=== PATIENT | male | born 1940 | race Asian ===

== ENCOUNTER 2018-10-25 23:32 | Outpatient (CLI) | payer OTHER | END 2018-10-25 23:33 | disposition critical access hospital (66) | LOC: EMS 23:32 | PROVIDERS: ATTEND Surgery | DX: R41.82 Altered mental status, unspecified (principal) | CPT/HCPCS: A0425; A0427 ==

== ENCOUNTER 2018-10-25 23:58 | Observation (INO) | payer MEDICARE, OTHER ==
[2018-10-26 02:27] LABS: BASOPHILS # (AUTO) 0.1 10^3/uL (0.0-0.1); BASOPHILS % (AUTO) 0.7 %; EOSINOPHILS # (AUTO) 0.1 10^3/uL (0.0-0.7); EOSINOPHILS % (AUTO) 1.2 %; HGB - HEMOGLOBIN 13.6 g/dL (14.0-18.0); LYMPHOCYTES # (AUTO) 0.4 10^3/uL (1.5-3.5); LYMPHOCYTES % (AUTO) 5.2 %; MEAN CORPUSCULAR HEMOGLOBIN 31.3 pg (27.0-31.0); MEAN CORPUSCULAR HGB CONC 33.5 g/dL (32.0-36.0); MEAN CORPUSCULAR VOLUME 93.7 fL (80.0-94.0); MEAN PLATELET VOLUME 9.3 fL (7.4-11.4); MONOCYTES # (AUTO) 0.5 10^3/uL (0.0-1.0); MONOCYTES % (AUTO) 5.7 %; NEUTROPHILS # (AUTO) 7.3 10^3/uL (1.5-6.6); NEUTROPHILS % (AUTO) 87.2 %; PLT - PLATELET COUNT 105 10^3/uL (130-450); RED BLOOD COUNT 4.32 10^6/uL (4.70-6.10); RED CELL DISTRIBUTION WIDTH 13.5 % (12.0-15.0); WHITE BLOOD COUNT 8.4 x10^3/uL (4.8-10.8)
[2018-10-26 02:30] LABS: ALBUMIN 3.5 g/dL (3.2-5.5); BILIRUBIN,TOTAL 0.7 mg/dL (0.2-1.0); CALCIUM 8.2 mg/dL (8.5-10.3); CREATININE 1.4 mg/dL (0.6-1.2); TOTAL PROTEIN 6.1 g/dL (6.7-8.2)
[2018-10-26 02:31] LABS: ALBUMIN/GLOBULIN RATIO 1.3 (1.0-2.2)
[2018-10-26] MEDS ORDERED: SODIUM CHLORIDE 0.9% 1,000 ML IV ONE (03:02)
[2018-10-26] MEDS ORDERED: ONDANSETRON 4 MG/2 ML VIAL IVP PRN (03:10)
[2018-10-26] MEDS ORDERED: SODIUM CHLORIDE FLUSH 0.9% 10 ML SYRINGE IVP PRN (03:10)
[2018-10-26] MEDS ORDERED: ACETAMINOPHEN 325 MG TABLET PO PRN (03:10)
[2018-10-26] MEDS ORDERED: ONDANSETRON ODT 4 MG TABLET TL PRN (03:10)
--- NOTE | 2018-10-26 03:10 | ED Physician Documentation ---
PD HPI SYNCOPE - Stated complaint Stated Complaint: HYPOTENSION - Chief complaint Chief Complaint: Cardiac - History obtained from History obtained from: Patient, Family - History of Present Illness Witnessed: Witnessed Timing - onset: How many hours ago (3) Duration: Minutes (20) Preceding symptoms: None Associated symptoms: Other (Confusion) Contributing factors: None Injury occurred: None Pain level max: 0 Pain level now: 0 Severity Comments: Moderate Treatment [employer]: Fluids - Additional information Additional information: 78-year-old male found by to be unresponsive on the couch at home. When he started talking he appeared confused. Patient was still confused when EMS arrived and was found to be hypotensive with systolic blood pressure in the 60s. Patient was laid down and feet were raised and patient gradually regained consciousness. Given 500 cc normal saline and brought to the emergency department. Review of Systems Constitutional: reports: Reviewed and negative Eyes: reports: Reviewed and negative Ears: reports: Reviewed and negative Nose: reports: Reviewed and negative Throat: reports: Reviewed and negative Cardiac: reports: Reviewed and negative Respiratory: reports: Reviewed and negative GI: reports: Reviewed and negative : reports: Reviewed and negative Skin: reports: Reviewed and negative Musculoskeletal: reports: Reviewed and negative Neurologic: reports: Syncope, Confused, Unresponsive Psychiatric: reports: Reviewed and negative Endocrine: reports: Reviewed and negative Immunocompromised: reports: Reviewed and negative PD PAST MEDICAL HISTORY - Past Medical History Cardiovascular: Hypertension, High cholesterol GI: GERD - Past Surgical History Past Surgical History: No - Present Medications Home Medications: Ambulatory Orders Medication Instructions Recorded Confirmed Albuterol Oral Soln 2 mg PO Q6H 05/08/13 05/13/13 Aspirin [Aspir 81] 81 mg PO 05/08/13 05/13/13 Atenolol [Tenormin] 25 mg PO 05/08/13 05/13/13 Gabapentin [Neurontin] 200 mg PO TID 05/08/13 05/13/13 Methocarbamol [Robaxin] 500 mg PO ONCE 05/08/13 05/13/13 Naproxen [Naprosyn] 125 mg PO 05/08/13 05/13/13 Omeprazole [PriLOSEC] 10 mg PO 05/08/13 05/13/13 Prazosin [Minipress] 1 mg PO DAILY 05/08/13 05/13/13 Rosuvastatin [Crestor] 10 mg PO 05/08/13 05/13/13 HYDROcod/ACETAM 325 [Vicodin 1 - 2 ea PO Q6H PRN #30 tablet 05/13/13 5/325] - Allergies Allergies/Adverse Reactions: Allergies Allergy/AdvReac Type Severity Reaction Status Date / Time No Known Drug Allergies Allergy Verified 05/08/13 14:25 - Social History Does the pt smoke?: No Smoking Status: Never smoker Does the pt drink ETOH?: No Does the pt have substance abuse?: No PD ED PE NORMAL - Vitals Vital signs reviewed: Yes - General General: Alert and oriented X 3, No acute distress - HEENT HEENT: PERRL - Neck Neck: Supple, no meningeal sign - Cardiac Cardiac: RRR, No murmur - Respiratory Respiratory: Clear bilaterally - Abdomen Abdomen: Normal bowel sounds, Soft, Non tender, Non distended - Derm Derm: Warm and dry - Extremities Extremities: No deformity - Neuro Neuro: Alert and oriented X 3 - Psych Psych: Normal mood, Normal affect Results - Vitals Vitals: Vital Signs - 24 hr 10/26/18 02:44 Heart Rate 68 Respiratory 16 Rate Blood Pressure 136/64 H O2 Saturation 100 Oxygen O2 Source Room air - Labs Labs: Laboratory Tests 10/26/18 10/26/18 10/26/18 01:25 01:25 01:25 WBC 8.4 RBC 4.32 L Hgb 13.6 L Hct 40.5 L MCV 93.7 MCH 31.3 H MCHC 33.5 RDW 13.5 Plt Count 105 L MPV 9.3 Neut # (Auto) 7.3 H Lymph # (Auto) 0.4 L [place] # (Auto) 0.5 Eos # (Auto) 0.1 Baso # (Auto) 0.1 Absolute Nucleated RBC 0.00 Nucleated RBC % 0.0 D-Dimer Sodium 140 Potassium 4.0 Chloride 106 Carbon Dioxide 26 Anion Gap 8.0 BUN 19 Creatinine 1.4 H Estimated GFR (MDRD) 49 L Glucose 131 H Lactic Acid Calcium 8.2 L Total Bilirubin 0.7 AST 21 ALT 18 Alkaline Phosphatase 51 Troponin I < 0.04 Total Protein 6.1 L Albumin 3.5 Globulin 2.6 Albumin/Globulin Ratio 1.3 Lipase 56 H 10/26/18 10/26/18 01:25 01:25 WBC RBC Hgb Hct MCV MCH MCHC RDW Plt Count MPV Neut # (Auto) Lymph # (Auto) [place] # (Auto) Eos # (Auto) Baso # (Auto) Absolute Nucleated RBC Nucleated RBC % D-Dimer 278.8 H Sodium Potassium Chloride Carbon Dioxide Anion Gap BUN Creatinine Estimated GFR (MDRD) Glucose Lactic Acid 2.0 Calcium Total Bilirubin AST ALT Alkaline Phosphatase Troponin I Total Protein Albumin Globulin Albumin/Globulin Ratio Lipase - Rads (name of study) CT HEAD Radiology: Final report received (WNL) Chest Xray Radiology: Final report received (WNL) PD MEDICAL DECISION MAKING - ED course Complexity details: reviewed results, re-evaluated patient, considered differential, d/w patient, d/w family ED course: 78-year-old male with episode of unresponsiveness and confusion while at home.Vitals, labs, EKG, chest x-ray, head CT unremarkable.D-dimer is mildly elevated but within normal limits using age-adjusted d-dimer limits. Lipase is mildly elevated. Creatinine mildly elevated. Concern for possible TIA versus syncopal episode. Given patient's hypotension he will be admitted for hospital observation and further evaluation. Departure - Departure Disposition: ED Place in Observation Clinical Impression: Syncope Qualifiers: Syncope type: unspecified Qualified Code(s): R55 - Syncope and collapse Condition: Serious
[2018-10-26] MEDS ORDERED: MIDODRINE 2.5 MG TABLET PO PRN (03:14)
--- NOTE | 2018-10-26 03:26 | HISTORY & PHYSICAL EXAMINATION ---
Chief Complaint - Chief Complaint Chief Complaint: Syncope and unresponsive at home on couch found by Stroke/TIA/Neuro Template - Admitted From Admitted from: ED - History Obtained From Records Reviewed: RN notes reviewed, Old records reviewed History obtained from: Patient, Family Exam limitations: No limitations - History of Present Illness HPI Comment/Other: 78-year-old male with hx HTN, HLP and GERD, was found by to be unresponsive on the couch at home. When he started talking he appeared confused. Patient was still confused when EMS arrived and was found to be hypotensive with systolic blood pressure in the 60s. Patient was laid down and feet were raised and patient gradually regained consciousness. Given 500 cc normal saline and brought to the emergency department. Head CT as well as initial cardiac workup was neg. Cr 1.4, Plt 105, d-dimer 278. LA 2.0, EKG shows sinus bradycardia at [address]-T wave abnormalities with trop x 1 neg. Patient initial encephaopathic but now is CAOx3 but does not recall what he did or said during episode. denies seizure event, only confusion and that he was "delirious". PMH/PSH - Past Medical History Cardiovascular: positive: Hypertension, High cholesterol GI: positive: GERD MRSA Hx?: No Social & Family Hx - Social History Does the pt smoke?: No Smoking Status: Never smoker Does the pt drink ETOH?: No Does the pt have substance abuse?: No Meds/Allgy - Home Medications Home Medications: Ambulatory Orders Medication Instructions Recorded Confirmed Albuterol Oral Soln 2 mg PO Q6H 05/08/13 05/13/13 Aspirin [Aspir 81] 81 mg PO 05/08/13 05/13/13 Atenolol [Tenormin] 25 mg PO 05/08/13 05/13/13 Gabapentin [Neurontin] 200 mg PO TID 05/08/13 05/13/13 Methocarbamol [Robaxin] 500 mg PO ONCE 05/08/13 05/13/13 Naproxen [Naprosyn] 125 mg PO 05/08/13 05/13/13 Omeprazole [PriLOSEC] 10 mg PO 05/08/13 05/13/13 Prazosin [Minipress] 1 mg PO DAILY 05/08/13 05/13/13 Rosuvastatin [Crestor] 10 mg PO 05/08/13 05/13/13 HYDROcod/ACETAM 5/325 [Vicodin 1 - 2 ea PO Q6H PRN #30 tablet 05/13/13 5/325] - Allergies Allergies/Adverse Reactions: Allergies Allergy/AdvReac Type Severity Reaction Status Date / Time No Known Drug Allergies Allergy Verified 05/08/13 14:25 Review of Systems - Constitutional Constitutional: reports: Weakness - Eyes Eyes: denies: Amaurosis, Field loss - Ears, Nose & Throat Ears, Nose & Throat: denies: Tinnitus, Vertigo - Cardiovascular Cariovascular: reports: Lightheadedness. denies: Chest pain, Edema - Respiratory Respiratory: denies: Wheezing - Gastrointestinal Gastrointestinal: reports: Reflux/heartburn. denies: Black stools, Bloody stools, Nausea, Vomiting, Coffee grounds emesis - Genitourinary Genitourinary: denies: Dysuria, Frequency, Hematuria - Musculoskeletal Musculoskeletal: denies: Muscle pain, Back pain, Muscle weakness - Integumentary Integumentary: denies: Rash, Pruritis, Lesions - Neurological Neurological: reports: General weakness. denies: Focal weakness, Dizziness, Numbness, Memory problems, Abnormal gait, Seizures, Slurred speech - Psychiatric Psychiatric: denies: Depression, Anxiety, Suicidal - Endocrine Endocrine: denies: Polyuria, Polydypsia, Polyphagia - Hematologic/Lymphatic Hematologic/Lymphatic: denies: Anemia, Recurrent infections - All Other Systems All Other Systems: reports: Reviewed and negative Prior Level of Functionality: Patient is active and independent at home with home ADL's Exam - Vital Signs Reviewed Vital Signs: Yes Vital Signs: Vital Signs x48h Pulse Resp BP Pulse Ox 10/26/18 02:44 68 16 136/64 H 100 - Physical Exam General Appearance: positive: No acute distress, Alert Eyes Bilateral: positive: Normal inspection, PERRL, EOMI, Conjunctivae nml ENT: positive: ENT inspection nml, Pharynx nml, No signs of dehydration Neck: positive: Nml inspection, Thyroid nml, No JVD, Trachea midline. negative: Thyromegaly Respiratory: positive: Chest non-tender, No respiratory distress, Breath sounds nml. negative: Wheezes, Rales, Rhonchi Cardiovascular: positive: Regular rate & rhythm, No murmur, No gallop. negative: JVD present, Systolic murmur, Diastolic murmur, Gallop/S3, Gallop/S4 Peripheral Pulses: positive: 2+ Abdomen: positive: Non-tender, No organomegaly, Nml bowel sounds, No distention. negative: Tenderness Skin: positive: Color nml, No rash, Warm, Dry. negative: Cyanosis, Diaphoresis, Skin rash Extremities: positive: Non-tender, Full ROM, Nml appearance, No pedal edema. negative: Joint swelling, Mariana's sign/cords Neurologic/Psychiatric: positive: Oriented x3, CN's nml (2-12), Mood/affect nml. negative: Facial droop, Slurred/abnml speech Reflexes: Bicep (R): 2+, Bicep (L): 2+, Knee (R): 2+, Knee (L): 2+, Ankle (R): 2+, Ankle (L): 2+ Babinski Reflex: Right: Absent, Left: Absent Results - Lab Results Lab results reviewed: Yes Fish Bones: 10/26/18 01:25 10/26/18 01:25 Other Lab Results: Lab Results x24hrs 10/26/18 10/26/18 10/26/18 Range/Units 01:25 01:25 01:25 WBC (4.8-10.8) x10^3/uL RBC (4.70-6.10) 10^6/uL Hgb (14.0-18.0) g/dL Hct (42.0-52.0) % MCV (80.0-94.0) fL MCH (27.0-31.0) pg MCHC (32.0-36.0) g/dL RDW (12.0-15.0) % Plt Count (130-450) 10^3/uL MPV (7.4-11.4) fL Neut # (Auto) (1.5-6.6) 10^3/uL Lymph # (Auto) (1.5-3.5) 10^3/uL [place] # (Auto) (0.0-1.0) 10^3/uL Eos # (Auto) (0.0-0.7) 10^3/uL Baso # (Auto) (0.0-0.1) 10^3/uL Absolute Nucleated RBC x10^3/uL Nucleated RBC % /100WBC D-Dimer 278.8 H (200.0-255.0) ng/mL Sodium (135-145) mmol/L Potassium (3.5-5.0) mmol/L Chloride (101-111) mmol/L Carbon Dioxide (21-32) mmol/L Anion Gap (6-13) BUN (6-20) mg/dL Creatinine (0.6-1.2) mg/dL Estimated GFR (MDRD) (>89) Glucose (70-100) mg/dL Lactic Acid 2.0 (0.5-2.2) mmol/L Calcium (8.5-10.3) mg/dL Total Bilirubin (0.2-1.0) mg/dL AST (10-42) IU/L ALT (10-60) IU/L Alkaline Phosphatase (42-121) IU/L Troponin I < 0.04 (<0.49) ng/mL Total Protein (6.7-8.2) g/dL Albumin (3.2-5.5) g/dL Globulin (2.1-4.2) g/dL Albumin/Globulin Ratio (1.0-2.2) Lipase (22-51) U/L 10/26/18 10/26/18 Range/Units 01:25 01:25 WBC 8.4 (4.8-10.8) x10^3/uL RBC 4.32 L (4.70-6.10) 10^6/uL Hgb 13.6 L (14.0-18.0) g/dL Hct 40.5 L (42.0-52.0) % MCV 93.7 (80.0-94.0) fL MCH 31.3 H (27.0-31.0) pg MCHC 33.5 (32.0-36.0) g/dL RDW 13.5 (12.0-15.0) % Plt Count 105 L (130-450) 10^3/uL MPV 9.3 (7.4-11.4) fL Neut # (Auto) 7.3 H (1.5-6.6) 10^3/uL Lymph # (Auto) 0.4 L (1.5-3.5) 10^3/uL [place] # (Auto) 0.5 (0.0-1.0) 10^3/uL Eos # (Auto) 0.1 (0.0-0.7) 10^3/uL Baso # (Auto) 0.1 (0.0-0.1) 10^3/uL Absolute Nucleated RBC 0.00 x10^3/uL Nucleated RBC % 0.0 /100WBC D-Dimer (200.0-255.0) ng/mL Sodium 140 (135-145) mmol/L Potassium 4.0 (3.5-5.0) mmol/L Chloride 106 (101-111) mmol/L Carbon Dioxide 26 (21-32) mmol/L Anion Gap 8.0 (6-13) BUN 19 (6-20) mg/dL Creatinine 1.4 H (0.6-1.2) mg/dL Estimated GFR (MDRD) 49 L (>89) Glucose 131 H (70-100) mg/dL Lactic Acid (0.5-2.2) mmol/L Calcium 8.2 L (8.5-10.3) mg/dL Total Bilirubin 0.7 (0.2-1.0) mg/dL AST 21 (10-42) IU/L ALT 18 (10-60) IU/L Alkaline Phosphatase 51 (42-121) IU/L Troponin I (<0.49) ng/mL Total Protein 6.1 L (6.7-8.2) g/dL Albumin 3.5 (3.2-5.5) g/dL Globulin 2.6 (2.1-4.2) g/dL Albumin/Globulin Ratio 1.3 (1.0-2.2) Lipase 56 H (22-51) U/L - Diagnostic Imaging Results Diagnostic Imaging Results: positive: Final report reviewed (CT head and EKG reviewed) - EKG Results EKG Interpreted Independently: No Impression/Plan - Problem List Problem List: 1. Acute syncope and collapse 2. Drug induced vs orthostatic syncope 3. Acute renal insufficiency/CKD stage 2 4. Thrombocytopenia 5. Acute encephalopathy sec to #1/2 (resolved) Plan: Obs/tele, neurochecks, echo, tsh to follow, coags, no bleeding noted on ASA to continue for thromboembolic ppx, perhaps low plts sec to aspirin use. Coags in am. Would hold all home meds as I suspect drug induced syncopal event (i.e. lisinopril atenolol, prazosin, robaxin); he no longer takes neurontin. Combined this would precipitate low BP's and or syncopal event, orthostats to follow. Unlikely seizure event. TRINY sec to low BP's and hypoperfusion less likely ATN or JENNIFER-inh induced by lisinopril. IVF's to perfuse kidneys, avoid nephrotoxic agents, lipid panel in am, moderate intensity statin. Am cortisol level due to very sbp on initial presentation. ECHO to eval for EF, MWA and or valvular/structural heart disease in the setting of sinus bradycardia seen on ECG with some ST T wave abnormalities. Midodrine 10 mg TID prn with parameters, if bP excursions then give hydralazine 10 mg prn with parameters. Would defer MRI brain as no neuro deficits seen. Consider US carotids. DVT and GI ppx to continue. Code Status: Full code. Core Measures - Anticipated LOS I expect patient to be DC'd or transferred within 96 hours.: Yes - Issues Hospital Issues and Management Plan: Will admit to obs/tele, PT, ECHO, labs and med mgmt. - DVT/VTE - Prophylaxis VTE/DVT Device ordered at admit?: Yes VTE/DVT Prophylaxis med ordered at admit?: No Not Ordered - Medical Reason: Not indicated - Stroke - Rehab Assessment Rehab services assessment to be ordered?: No Not Ordered - Medical Reason: Not indicated - AMI - Statin at Admit Aspirin Prescribed on Admit: Yes
[2018-10-26] MEDS ORDERED: hydrALAZINE INJ 20 MG/ML VIAL IVP PRN (03:50)
[2018-10-26] MEDS ORDERED: LACTATED RINGERS 1,000 ML IV SCH (04:00)
--- NOTE | 2018-10-26 05:20 | Ultrasound Report ---
Reason: syncope and collapse Procedure Date: 10/26/2018 Accession Number: [id number] / [id number] Procedure: US - Carotid Doppler Complete CPT Code: FULL RESULT: EXAM: BILATERAL CAROTID AND VERTEBRAL ARTERY DUPLEX DOPPLER ULTRASOUND: EXAM DATE: 10/26/2018 04:30 AM CLINICAL HISTORY: Syncope and collapse. COMPARISON: None. TECHNIQUE: Grayscale imaging, color Doppler, and duplex spectral Doppler were used to evaluate the carotid and vertebral arteries bilaterally. Static images were obtained. FINDINGS: A mild amount of smooth carotid plaquing is seen bilaterally. Normal antegrade flow is present in bilateral vertebral arteries. VELOCITIES (cm/sec): Right CCA mid: PSV 127 cm/sec CCA dist: PSV 112 cm/sec ICA prox: PSV 84.5 cm/sec, EDV 22.7 cm/sec ICA mid: PSV 73.9 cm/sec, EDV 21.9 cm/sec ICA dist: PSV 52.7 cm/sec, EDV 15.9 cm/sec ECA: PSV 90.1 cm/sec Vert: PSV 63.5 cm/sec ICA/CCA: 0.7 Left CCA mid: PSV 82.3 cm/sec CCA dist: PSV 86.6 cm/sec ICA prox: PSV 73.6 cm/sec, EDV 14.4 cm/sec ICA mid: PSV 56.1 cm/sec, EDV 16 cm/sec ICA dist: PSV 68.6 cm/sec, EDV 21 cm/sec ECA: PSV 80.1 cm/sec Vert: PSV 44.5 cm/sec ICA/CCA: 0.9 ICA diameter stenosis: Right: <50% by velocity and <70% by NASCET criteria. Left: <50% by velocity and <70% by NASCET criteria. IMPRESSION: 1. Mild bilateral carotid artery plaquing. 2. In the right carotid artery there are no elevated carotid artery velocities to suggest hemodynamically significant stenosis. 3. In the left carotid artery there are no elevated carotid artery velocities to suggest hemodynamically significant stenosis. 4. Normal antegrade flow is present in bilateral vertebral arteries. General Recommendations: Stenosis =50% ICA - Follow-up ultrasound 6-12 months Stenosis <50% ICA - High Risk Patient with plaque - Follow-up ultrasound 1-2 years Normal Study but High Risk Patient - Follow-up ultrasound 3-5 years Management recommendations and diagnostic criteria are based on current IAC endorsed standards in Carotid Artery Stenosis: Grayscale and Doppler Ultrasound Diagnosis. Validated velocity measurements with angiographic measurements and velocity criteria are extrapolated from diameter data as defined by the Society of Radiologists in Ultrasound Consensus Conference Radiology 2003; 229;340-346. RADIA
[2018-10-26 06:01] LABS: INR 1.1 (0.8-1.2); PT - PROTHROMBIN TIME 12.8 secs (9.9-12.6)
[2018-10-26 06:20] LABS: HEMOGLOBIN A1C 0.54 g/dL; HEMOGLOBIN A1C % 5.7 % (4.6-6.2)
[2018-10-26 06:21] LABS: CHOL/HDL RATIO 3.8 (<5.0); CHOLESTEROL 149 mg/dL; HDL CHOLESTEROL 39 mg/dL; LDL CHOLESTEROL,CALCULATED 87 mg/dL; LDL/HDL RATIO 2.2 (<3.6); VLDL CHOLESTEROL 23 mg/dL
[2018-10-26] MEDS ORDERED: SODIUM CHLORIDE FLUSH 0.9% 10 ML SYRINGE IVP SCH (09:00)
[2018-10-26] MEDS ORDERED: POLYETHYLENE GLYCOL 3350 17 GM PACKET PO SCH (09:00)
[2018-10-26] MEDS ORDERED: FAMOTIDINE 20 MG TABLET PO SCH (09:00)
[2018-10-26] MEDS ORDERED: ASPIRIN EC 81 MG TABLET PO SCH (09:00)
[2018-10-26 09:08] LABS: BASOPHILS % (AUTO) 0.2 %; EOSINOPHILS # (AUTO) 0.3 10^3/uL (0.0-0.7); EOSINOPHILS % (AUTO) 3.7 %; HGB - HEMOGLOBIN 13.5 g/dL (14.0-18.0); LYMPHOCYTES # (AUTO) 1.1 10^3/uL (1.5-3.5); MEAN CORPUSCULAR HEMOGLOBIN 31.4 pg (27.0-31.0); MEAN CORPUSCULAR HGB CONC 33.7 g/dL (32.0-36.0); MEAN CORPUSCULAR VOLUME 93.4 fL (80.0-94.0); MEAN PLATELET VOLUME 8.8 fL (7.4-11.4); MONOCYTES # (AUTO) 0.5 10^3/uL (0.0-1.0); MONOCYTES % (AUTO) 7.2 %; NEUTROPHILS # (AUTO) 4.9 10^3/uL (1.5-6.6); NEUTROPHILS % (AUTO) 72.9 %; PLT - PLATELET COUNT 102 10^3/uL (130-450); RED BLOOD COUNT 4.31 10^6/uL (4.70-6.10); RED CELL DISTRIBUTION WIDTH 13.2 % (12.0-15.0); WHITE BLOOD COUNT 6.8 x10^3/uL (4.8-10.8)
[2018-10-26 09:26] LABS: ALBUMIN 3.6 g/dL (3.2-5.5); CALCIUM 8.5 mg/dL (8.5-10.3); CREATININE 1.2 mg/dL (0.6-1.2); PHOSPHORUS 2.5 mg/dL (2.5-4.6)
--- NOTE | 2018-10-26 11:51 | XRAY Report ---
Reason: SYNCOPE Procedure Date: 10/26/2018 Accession Number: [id number] / [id number] Procedure: XR - Chest 1 View X-Ray CPT Code: 66833 FULL RESULT: EXAM: CHEST RADIOGRAPHY EXAM DATE: 10/26/2018 01:20 AM. CLINICAL HISTORY: Syncope COMPARISON: CHEST 2 VIEW PA/LAT 05/13/2013 2:04 AM ABDOMEN/PELVIS W/O 05/13/2013 2:12 AM. TECHNIQUE: One view FINDINGS: Lungs/Pleura: No focal opacities evident. No pleural effusion. No pneumothorax. Normal volumes. Mediastinum: Heart and mediastinal contours are unremarkable. Other: None. IMPRESSION: Negative single view chest. RADIA
--- NOTE | 2018-10-26 11:52 | CT Report ---
Reason: SYNCOPE Procedure Date: 10/26/2018 Accession Number: [id number] / [id number] Procedure: CT - HEAD WO CPT Code: FULL RESULT: EXAM: CT HEAD EXAM DATE: 10/26/2018 01:34 AM. CLINICAL HISTORY: Syncope COMPARISON: None. TECHNIQUE: Multiaxial CT images were obtained from the foramen magnum to the vertex. Reformats: Sagittal and coronal. IV contrast: None. In accordance with CT protocol optimization, one or more of the following dose reduction techniques were utilized for this exam: automated exposure control, adjustment of mA and/or KV based on patient size, or use of iterative reconstructive technique. FINDINGS: Parenchyma: No intraparenchymal hemorrhage. No evidence of mass, midline shift, or CT findings of acute infarction. Mild low density of white matter of the cerebral hemispheres. No evidence of prior large vascular territory infarct. Extraaxial Spaces: No subdural or epidural collections identified. Ventricles: Mild enlargement of lateral and third ventricles. No mass-effect. No midline shift. Sinuses and Orbits: Imaged paranasal sinuses, orbits, and mastoids show no significant abnormality. Bones: No evidence of fracture or calvarial defect. Other: None. IMPRESSION: No CT evidence of acute intracranial process. RADIA
--- NOTE | 2018-10-26 15:11 | Discharge Plan ---
Discharge Plan Disposition: 01 Home, Self Care Condition: Stable Diet: Low Sodium Activity Restrictions: Activity as Tolerated Shower Restrictions: No Driving Restrictions: Yes (No driving til cleared by your PCP) Instruction Topics: Syncope, Bradycardia Additional Instructions or Follow Up instructions: You were here for evaluation and management of fainting. You had a low BP and a low pulse when the paramedics arrived. Testing here showed that you were dehydrated and your Atenolol dose was excessive, Please stop taking the Atenolol pill. Resume your other medications. Stay well hydrated. You must see your PCP to be cleared to resume driving. It will be an illegal offense if you are caught driving without being cleared. Please see your PCP MARIA G, therefore. No Smoking: If you smoke, Please STOP! Call for help. Follow-up with: Sukumar Ayala DO [Provider Admit Priv/Credential] -
[2018-10-26 16:24] VITALS: BP 150/74
[2018-10-26] MEDS ORDERED: ATORVASTATIN 40 MG TABLET PO SCH (21:00)
--- NOTE | 2018-11-03 08:15 | PROVIDER PROGRESS NOTE ---
Assessment/Plan - Problem List (1) Syncope Qualifiers: Syncope type: unspecified Qualified Code(s): R55 - Syncope and collapse Assessment/Plan: Troponin was normal, carotid Doppler was normal. BP improved to 136 systolic, after a fluid bolus and iv rehydration and the creatinine of 1.4 corrected, orthostatic VS checks were normal. BP at the scene (from the Pre-hospital Report sheet) was 70/30 with a pulse of only 60. This all suggests volume depletion and B-chato excess. Will ask patient to stop using the B-chato and to hydrate better. (2) Bradycardia Assessment/Plan: B-chato excess by virtue of HR only 60, and no compensatory tachycardia, when he was hypotensive. Will ask patient to stop using the B-chato and to hydrate better. Discussed with patient, and at bedside and he will comply. See PCP or specialist for further medication adjustments. - Lab Result Fish Bone Diagrams: 10/26/18 08:55 10/26/18 08:55 Subjective - Subjective Patient Reports: Feeling Better Objective Vital Signs: Oxygen O2 Source Room air General: Alert, Oriented x3 HEENT: Mucous membr. moist/pink Neck: No JVD Neuro: Non Focal, Oriented Times 3 Cardiovascular: Regular rate, No murmurs Respiratory: No respiratory distress, Breath sounds nml Abdomen: Normal bowel sounds Extremities: No edema - Results Results: Laboratory Results WBC 6.8 x10^3/uL (4.8-10.8) 10/26/18 08:55 RBC 4.31 10^6/uL (4.70-6.10) L 10/26/18 08:55 Hgb 13.5 g/dL (14.0-18.0) L 10/26/18 08:55 Hct 40.2 % (42.0-52.0) L 10/26/18 08:55 MCV 93.4 fL (80.0-94.0) 10/26/18 08:55 MCH 31.4 pg (27.0-31.0) H 10/26/18 08:55 MCHC 33.7 g/dL (32.0-36.0) 10/26/18 08:55 RDW 13.2 % (12.0-15.0) 10/26/18 08:55 Plt Count 102 10^3/uL (130-450) L 10/26/18 08:55 MPV 8.8 fL (7.4-11.4) 10/26/18 08:55 Neut # (Auto) 4.9 10^3/uL (1.5-6.6) 10/26/18 08:55 Lymph # (Auto) 1.1 10^3/uL (1.5-3.5) L 10/26/18 08:55 [place] # (Auto) 0.5 10^3/uL (0.0-1.0) 10/26/18 08:55 Eos # (Auto) 0.3 10^3/uL (0.0-0.7) 10/26/18 08:55 Baso # (Auto) 0.0 10^3/uL (0.0-0.1) 10/26/18 08:55 Absolute Nucleated RBC 0.00 x10^3/uL 10/26/18 08:55 Nucleated RBC % 0.0 /100WBC 10/26/18 08:55 PT 12.8 secs (9.9-12.6) H 10/26/18 01:25 INR 1.1 (0.8-1.2) 10/26/18 01:25 D-Dimer 278.8 ng/mL (200.0-255.0) H 10/26/18 01:25 Sodium 138 mmol/L (135-145) 10/26/18 08:55 Potassium 3.9 mmol/L (3.5-5.0) 10/26/18 08:55 Chloride 104 mmol/L (101-111) 10/26/18 08:55 Carbon Dioxide 28 mmol/L (21-32) 10/26/18 08:55 Anion Gap 6.0 (6-13) 10/26/18 08:55 BUN 18 mg/dL (6-20) 10/26/18 08:55 Creatinine 1.2 mg/dL (0.6-1.2) 10/26/18 08:55 Estimated GFR (MDRD) 58 (>89) L 10/26/18 08:55 Glucose 152 mg/dL (70-100) H 10/26/18 08:55 Glycated Hemoglobin 5.7 % (4.6-6.2) 10/26/18 01:25 Estim Average Glucose 117 (70-100) H 10/26/18 01:25 Lactic Acid 1.6 mmol/L (0.5-2.2) 10/26/18 08:55 Calcium 8.5 mg/dL (8.5-10.3) 10/26/18 08:55 Phosphorus 2.5 mg/dL (2.5-4.6) 10/26/18 08:55 Total Bilirubin 0.7 mg/dL (0.2-1.0) 10/26/18 01:25 AST 21 IU/L (10-42) 10/26/18 01:25 ALT 18 IU/L (10-60) 10/26/18 01:25 Alkaline Phosphatase 51 IU/L (42-121) 10/26/18 01:25 Troponin I < 0.04 ng/mL (<0.49) 10/26/18 01:25 Total Protein 6.1 g/dL (6.7-8.2) L 10/26/18 01:25 Albumin 3.6 g/dL (3.2-5.5) 10/26/18 08:55 Globulin 2.6 g/dL (2.1-4.2) 10/26/18 01:25 Albumin/Globulin Ratio 1.3 (1.0-2.2) 10/26/18 01:25 Triglycerides 113 mg/dL (-149) 10/26/18 01:25 Cholesterol 149 mg/dL (-199) 10/26/18 01:25 LDL Cholesterol, Calc 87 mg/dL (-129) 10/26/18 01:25 VLDL Cholesterol 23 mg/dL 10/26/18 01:25 HDL Cholesterol 39 mg/dL (60-) L 10/26/18 01:25 LDL/HDL Ratio 2.2 (<3.6) 10/26/18 01:25 Cholesterol/HDL Ratio 3.8 (<5.0) 10/26/18 01:25 Lipase 56 U/L (22-51) H 10/26/18 01:25 TSH 1.03 uIU/mL (0.34-5.60) 10/26/18 01:25 Cortisol AM Sample 10.3 ug/dL 10/26/18 08:55
== END 2018-10-26 16:15 | disposition home or self-care (01) ==
LOC: ED 23:58 → OBS 10-26 03:11
PROVIDERS: ADMIT Family Medicine; ATTEND Internal Medicine
DX: R55 Syncope and collapse (principal); E86.0 Dehydration; I95.2 Hypotension due to drugs; R00.1 Bradycardia, unspecified; T44.7X5A Adverse effect of beta-adrenoreceptor antagonists, initial encounter; I10 Essential (primary) hypertension; E78.5 Hyperlipidemia, unspecified; K21.9 Gastro-esophageal reflux disease without esophagitis; I12.9 Hypertensive chronic kidney disease with stage 1 through stage 4 chronic kidney disease, or unspecified chronic kidney disease; N18.2 Chronic kidney disease, stage 2 (mild); D69.6 Thrombocytopenia, unspecified; Y92.009 Unspecified place in unspecified non-institutional (private) residence as the place of occurrence of the external cause; Z79.82 Long term (current) use of aspirin; Z79.52 Long term (current) use of systemic steroids; Z79.891 Long term (current) use of opiate analgesic
CPT/HCPCS: 36415; 70450; 71045; 80053; 80061; 80069; 82533; 83036; 83605; 83690; 84443; 84484; 85025; 85379; 85610; 87040; 93005; 93306; 93880; 96360; 96361; 97161; 99283; 99285; A9270; G0378; J7120; 83721

== ENCOUNTER 2019-10-18 06:25 | Outpatient (CLI) | payer OTHER | END 2019-10-18 06:26 | disposition short-term general hospital (02) | LOC: EMS 06:25 | PROVIDERS: ATTEND Surgery | DX: R55 Syncope and collapse (principal); R03.1 Nonspecific low blood-pressure reading | CPT/HCPCS: A0425; A0427 ==

== ENCOUNTER 2023-06-25 19:42 | Outpatient (CLI) | payer OTHER | END 2023-06-25 19:43 | disposition short-term general hospital (02) | LOC: EMS 19:42 | DX: R53.1 Weakness (principal); R53.81 Other malaise; R25.1 Tremor, unspecified; R39.89 Other symptoms and signs involving the genitourinary system; K59.00 Constipation, unspecified; R68.83 Chills (without fever); R63.8 Other symptoms and signs concerning food and fluid intake | CPT/HCPCS: A0425; A0427 ==